=== PATIENT | male | born 1960 | race Caucasian/White ===

== ENCOUNTER 2017-05-16 10:46 | Emergency (ER) | payer OTHER ==
[~2017-05-16] VITALS: Ht 177.8 cm; Wt 122.5 kg
[2017-05-16 13:27] VITALS: BP 140/77
== END 2017-05-16 13:27 | disposition home or self-care (01) ==
LOC: ED 10:46
DX: S16.1XXA Strain of muscle, fascia and tendon at neck level, initial encounter (principal); G89.29 Other chronic pain; M25.561 Pain in right knee; R68.84 Jaw pain; Z88.0 Allergy status to penicillin; V53.6XXA Passenger in pick-up truck or van injured in collision with car, pick-up truck or van in traffic accident, initial encounter; Y93.89 Activity, other specified; Y99.8 Other external cause status; Y92.89 Other specified places as the place of occurrence of the external cause